=== PATIENT | female | born 1940 | race American Indian/Alaskan Native ===

== ENCOUNTER 2017-02-11 10:41 | Outpatient (CLI) | payer MEDICARE ==
--- NOTE | 2017-02-11 12:49 | Mammography Report ---
BILATERAL DIGITAL SCREENING MAMMOGRAM with CAD: 02/11/17 10:41:00 CLINICAL: Routine screening. COMPARISON:02/05/16 FINDINGS: The breasts are almost entirely fatty. No mass, architectural distortion or suspicious calcifications. IMPRESSION: No mammographic evidence of malignancy. BI-RADS CATEGORY: 1 - - Negative RECOMMENDATION: Routine mammographic screening in one year. COMMENT: Patient follow-up letters are generated by our [employer] application.
== END 2017-02-11 10:42 | disposition home or self-care (01) ==
LOC: MAMMO 10:41
PROVIDERS: ATTEND Internal Medicine
DX: Z12.31 Encounter for screening mammogram for malignant neoplasm of breast (principal); Z87.891 Personal history of nicotine dependence
CPT/HCPCS: 77067; G0202

== ENCOUNTER 2018-02-15 09:40 | Outpatient (CLI) | payer MEDICARE ==
--- NOTE | 2018-02-15 15:06 | Mammography Report ---
BILATERAL DIGITAL SCREENING MAMMOGRAM with CAD: 02/15/18 09:40:00 CLINICAL: Routine screening. COMPARISON:02/11/17 FINDINGS: The breasts are almost entirely fatty. No mass, architectural distortion or suspicious calcifications. IMPRESSION: No mammographic evidence of malignancy. BI-RADS CATEGORY: 1 - - Negative RECOMMENDATION: Routine mammographic screening in one year. COMMENT: Patient follow-up letters are generated by our [employer] application.
== END 2018-02-15 09:41 | disposition home or self-care (01) ==
LOC: MAMMO 09:40
PROVIDERS: ATTEND Internal Medicine
DX: Z12.31 Encounter for screening mammogram for malignant neoplasm of breast (principal); Z87.891 Personal history of nicotine dependence
CPT/HCPCS: 77067

== ENCOUNTER 2020-10-15 15:59 | Emergency (ER) | payer MEDICARE ==
[2020-10-15] MEDS ORDERED: OXYMETAZOLINE 0.05% NASAL SPRAY NS ONE (17:19)
[2020-10-15] MEDS ORDERED: METOPROLOL TARTRATE 50 MG TAB PO ONE (17:19)
--- NOTE | 2020-10-15 18:04 | XRay Report ---
ABDOMEN 1 VIEW(S) INDICATION / CLINICAL INFORMATION: constipation. COMPARISON: None available. FINDINGS: TUBES / LINES: None. BOWEL GAS PATTERN/EXTRALUMINAL GAS: No significant abnormality. No pneumatosis or secondary signs of free air. 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 IMPRESSION: 1. No acute findings. Signer Name: Radu Leal MD Signed: 10/15/2020 6:00 PM Workstation Name: [id number]
--- NOTE | 2020-10-15 18:39 | Emergency Department Report ---
ED ENT HPI - General Chief complaint: Nosebleed Stated complaint: NOSE BLEED Time Seen by Provider: 10/15/20 17:11 Source: patient Mode of arrival: Ambulatory Limitations: No Limitations - History of Present Illness Initial comments: Patient is 80-year-old F [place] female who is presenting with nosebleed. States for the last several hours she has had some minor bleeding from the left nostril. States this occurred after straining to have a bowel movement. Patient states she took laxative and magnesium citrate earlier today for some constipation and feels as though she needs to go to bathroom but has been unable to as of yet. Patient states she does not have pain in abdomen but just feels as though she needs to continue to have a bowel movement. Patient came to the emergency department for the nosebleed. She has a history of hypertension states she has not missed any dose of her medications. Blood pressure was elevated on arrival. She denies any shortness of breath chest pain focal neurological deficits. - Related Data Home Medications Medication Instructions Recorded Confirmed Last Taken Amlodipine Besylate/Benazepril 1 each PO QDAY 12/31/14 01/08/15 01/08/15 04:00 [Amlodipine-Benazepril 10-20 mg] HYDROcodone/APAP 5-325 [[place] 1 each PO Q12HR PRN 12/31/14 12/31/14 Unknown 5-325 mg TAB] Simvastatin (Nf) [Zocor TAB] 20 mg PO QHS 12/31/14 01/08/15 01/07/15 Triamter/Hctz 37.5-25 mg 1 tab PO QDAY 12/31/14 01/08/15 01/08/13 04:00 [Maxzide-25] cloNIDine [Catapres] 0.1 mg PO BID 12/31/14 01/08/15 01/08/15 04:00 Previous Rx's Medication Instructions Recorded Last Taken Type Promethazine [Phenergan TAB] 25 mg PO Q6HR PRN #10 tab 01/11/15 Unknown Rx oxyCODONE /ACETAMINOPHEN [Percocet 1 - 2 tab PO Q6HR PRN #40 tab 01/11/15 Unknown Rx 5/325 mg] Ferrous Gluconate [Fergon 325 MG 325 mg PO QDAY #30 tablet 01/12/15 Unknown Rx tab] Dicyclomine [Bentyl] 20 mg PO QID #10 tablet 10/15/20 Unknown Rx Docusate Sodium [Colace] 100 mg PO BID #30 capsule 10/15/20 Unknown Rx Allergies Allergy/AdvReac Type Severity Reaction Status Date / Time latex Allergy Itching Unverified 02/11/17 10:55 ED Dental HPI - General Chief complaint: Nosebleed Stated complaint: NOSE BLEED Time Seen by Provider: 10/15/20 17:11 Source: patient Mode of arrival: Ambulatory Limitations: No Limitations - Related Data Home Medications Medication Instructions Recorded Confirmed Last Taken Amlodipine Besylate/Benazepril 1 each PO QDAY 12/31/14 01/08/15 01/08/15 04:00 [Amlodipine-Benazepril 10-20 mg] HYDROcodone/APAP 5-325 [[place] 1 each PO Q12HR PRN 12/31/14 12/31/14 Unknown 5-325 mg TAB] Simvastatin (Nf) [Zocor TAB] 20 mg PO QHS 12/31/14 01/08/15 01/07/15 Triamter/Hctz 37.5-25 mg 1 tab PO QDAY 12/31/14 01/08/15 01/08/13 04:00 [Maxzide-25] cloNIDine [Catapres] 0.1 mg PO BID 12/31/14 01/08/15 01/08/15 04:00 Previous Rx's Medication Instructions Recorded Last Taken Type Promethazine [Phenergan TAB] 25 mg PO Q6HR PRN #10 tab 01/11/15 Unknown Rx oxyCODONE /ACETAMINOPHEN [Percocet 1 - 2 tab PO Q6HR PRN #40 tab 01/11/15 Unknown Rx 5/325 mg] Ferrous Gluconate [Fergon 325 MG 325 mg PO QDAY #30 tablet 01/12/15 Unknown Rx tab] Dicyclomine [Bentyl] 20 mg PO QID #10 tablet 10/15/20 Unknown Rx Docusate Sodium [Colace] 100 mg PO BID #30 capsule 10/15/20 Unknown Rx Allergies Allergy/AdvReac Type Severity Reaction Status Date / Time latex Allergy Itching Unverified 02/11/17 10:55 ED Review of Systems ROS: Stated complaint: NOSE BLEED Other details as noted in HPI Comment: All other systems reviewed and negative ED Past Medical Hx - Past Medical History Hx Hypertension: Yes Hx of Cancer: Yes - Surgical History Past Surgical History?: Yes Additional Surgical History: colon cancer - Medications Home Medications: Home Medications Medication Instructions Recorded Confirmed Last Taken Type Amlodipine Besylate/Benazepril 1 each PO QDAY 12/31/14 01/08/15 01/08/15 04:00 History [Amlodipine-Benazepril 10-20 mg] HYDROcodone/APAP 5-325 [[place] 1 each PO Q12HR PRN 12/31/14 12/31/14 Unknown History 5-325 mg TAB] Simvastatin (Nf) [Zocor TAB] 20 mg PO QHS 12/31/14 01/08/15 01/07/15 History Triamter/Hctz 37.5-25 mg 1 tab PO QDAY 12/31/14 01/08/15 01/08/13 04:00 History [Maxzide-25] cloNIDine [Catapres] 0.1 mg PO BID 12/31/14 01/08/15 01/08/15 04:00 History Promethazine [Phenergan TAB] 25 mg PO Q6HR PRN #10 tab 01/11/15 Unknown Rx oxyCODONE /ACETAMINOPHEN [Percocet 1 - 2 tab PO Q6HR PRN #40 tab 01/11/15 Unknown Rx 5/325 mg] Ferrous Gluconate [Fergon 325 MG 325 mg PO QDAY #30 tablet 01/12/15 Unknown Rx tab] Dicyclomine [Bentyl] 20 mg PO QID #10 tablet 10/15/20 Unknown Rx Docusate Sodium [Colace] 100 mg PO BID #30 capsule 10/15/20 Unknown Rx ED Physical Exam - General Limitations: No Limitations General appearance: alert, in no apparent distress - Head Head exam: Present: atraumatic, normocephalic - Eye Eye exam: Present: normal appearance, PERRL, EOMI - ENT ENT exam: Present: mucous membranes moist - Neck Neck exam: Present: normal inspection - Respiratory Respiratory exam: Present: normal lung sounds bilaterally. Absent: respiratory distress, wheezes, rales, rhonchi - Cardiovascular Cardiovascular Exam: Present: regular rate, normal rhythm, normal heart sounds. Absent: systolic murmur, diastolic murmur, rubs, gallop - GI/Abdominal GI/Abdominal exam: Present: soft, normal bowel sounds. Absent: distended, tenderness, guarding, rebound - Extremities Exam Extremities exam: Present: normal inspection - Back Exam Back exam: Present: normal inspection - Neurological Exam Neurological exam: Present: alert, oriented X3 - Psychiatric Psychiatric exam: Present: normal affect, normal mood - Skin Skin exam: Present: warm, dry, intact, normal color. Absent: rash ED Course Vital Signs 10/15/20 10/15/20 10/15/20 16:33 17:14 17:31 Temperature 98.4 F Pulse Rate 98 H Respiratory 20 Rate Blood Pressure 178/89 206/92 213/107 O2 Sat by Pulse 96 96 97 Oximetry 10/15/20 18:01 Temperature Pulse Rate Respiratory Rate Blood Pressure 189/92 O2 Sat by Pulse 97 Oximetry ED Medical Decision Making - Medical Decision Making Placed a Merocel into the left nostril and inflated the sponge with Afrin. There is good hemostasis of the patient's nosebleed. KUB shows nonobstructive bowel gas pattern. Per my interpretation there is a large amount of stool in the rectal vault. Patient encouraged to use a fleets enema and will be discharged home. Did not appear as though the patient needs any further laxatives at this time. Critical care attestation.: If time is entered above; I have spent that time in minutes in the direct care of this critically ill patient, excluding procedure time. ED Disposition Clinical Impression: Epistaxis, Constipation, Hypertensive urgency Disposition: -01 TO HOME OR SELFCARE Is pt being admited?: No Does the pt Need Aspirin: No Condition: Stable Instructions: Constipation, Adult, [id number], Nosebleed, Adult, Mineral Oil rectal enema Additional Instructions: You can remove the sponge in your nose after 24 hours Referrals: PRIMARY CARE, [Primary Care Provider] - 3-5 Days Time of Disposition: 18:38
[2020-10-15 18:40] VITALS: BP 195/89
== END 2020-10-15 18:53 | disposition home or self-care (01) ==
LOC: ED 15:59
DX: R04.0 Epistaxis (principal); K59.00 Constipation, unspecified; I16.0 Hypertensive urgency; Z98.890 Other specified postprocedural states; Z79.899 Other long term (current) drug therapy; Z91.040 Latex allergy status
CPT/HCPCS: 74018